=== PATIENT | female | born 1980 | race African-American/Black ===

== ENCOUNTER 2018-11-04 17:25 | Emergency (ER) | payer OTHER ==
[~2018-11-04] VITALS: Ht 142.2 cm; Wt 83.9 kg
[2018-11-04 17:25] VITALS: BP 126/88
[2018-11-04] MEDS ORDERED: IV NORMAL SALINE 1,000ML 1,000 ML IV SCH (17:45)
--- NOTE | 2018-11-04 18:04 | PHYS DOC ---
Past History Past Medical History: Diabetes (CELESTE MAHAN DO) Additional Past Surgical Histo: right ankle ORIF (CELESTE MAHAN DO) Smoking: Non-smoker Alcohol Use: None Drug Use: None (CELESTE MAHAN DO) Adult General Chief Complaint Chief Complaint: VAGINAL PROBLEM HPI HPI Patient is a 37-year-old female who presents with vaginal discharge since last night. She also notes some dysuria for the past several days. She is a diabetic patient and his noted an elevated blood sugar for the past several days as well along with frequency of urination. There has been no fever. No back or flank pain. Patient has tried no [id number] or home medicines for this. Patient denies being sexually active. She reports having an IUD in place.[] (CELESTE MAHAN DO) Review of Systems Review of Systems Constitutional: Denies fever or chills [] Eyes: Denies change in visual acuity, redness, or eye pain [] HENT: Denies nasal congestion or sore throat [] Respiratory: Denies cough or shortness of breath [] Cardiovascular: No chest pain or palpitations[] GI: Denies abdominal pain, nausea, vomiting, bloody stools or diarrhea [] : See history of present illness[] Musculoskeletal: Denies back pain or joint pain [] Integument: Denies rash or skin lesions [] Neurologic: Denies headache, focal weakness or sensory changes [] Endocrine: Denies polydipsia, see history of present illness [] All other systems were reviewed and found to be within normal limits, except as documented in this note. (CELESTE MAHAN DO) Physical Exam Physical Exam Constitutional: Well developed, well nourished, no acute distress, non-toxic appearance. [] HENT: Normocephalic, atraumatic, bilateral external ears normal, oropharynx moist, no oral exudates, nose normal. [] Eyes: PERRLA, EOMI, conjunctiva normal, no discharge. [] Neck: Normal range of motion, no tenderness, supple, no stridor. [] Cardiovascular:Heart rate is tachycardic in the low 100s with a regular rhythm, no murmur [] Lungs & Thorax: Bilateral breath sounds clear to auscultation [] Abdomen: Bowel sounds normal, soft, no tenderness, no masses, no pulsatile masses. exam performed with combination machine tender: External genitalia, [place]'s, [place]-normal , V/V-yellow tinged d/c, Cervix-parous os, no CMT [] Skin: Warm, dry, no erythema, no rash. [] Back: No tenderness, no CVA tenderness. [] Extremities: No tenderness, no cyanosis, no clubbing, ROM intact, no edema. [] Neurologic: Alert and oriented X 3, normal motor function, normal sensory function, no focal deficits noted. [] Psychologic: Affect normal, judgement normal, mood normal. [] (CELESTE MAHAN DO) EKG EKG [] (CELESTE MAHAN DO) Radiology/Procedures Radiology/Procedures [] (CELESTE MAHAN DO) Course & Med Decision Making Course & Med Decision Making Pertinent Labs and Imaging studies reviewed. (See chart for details) ED course: Patient arrived, was placed in bed, in tolerated exam well. IV fluids were started. Laboratory samples were obtained. Patient care endorsed to the oncoming physician at 1800 with the results of these tests pending.[] (CELESTE MAHAN DO) Dragon Disclaimer Dragon Disclaimer This electronic medical record was generated, in whole or in part, using a voice recognition dictation system. (CELESTE MAHAN DO) Departure Departure: Impression: Primary Impression: Dysuria Additional Impression: Vaginal discharge Disposition: HOME, SELF-CARE Condition: STABLE Referrals: PCP,NO (PCP) Patient Instructions: Dysuria, Vaginitis, Ebeu-nw-[id number] Scripts Nitrofurantoin Monohyd/M-Cryst (MACROBID 100 MG CAPSULE) 100 Mg Capsule 1 CAP PO BID for infection, #14 CAP Prov: KRISTAN LUI Jr. DO 11/04/18 Problem Qualifiers CELESTE MAHAN DO Nov 04, 2018 18:04 KRISTAN LUI Jr. DO Nov 04, 2018 20:54
[2018-11-04 18:24] LABS: BILIRUBIN,URINE NEG (NEG); CLARITY,URINE CLEAR; COLOR,URINE YELLOW; GLUCOSE,URINE >=1000 mg/dL (NEG); NITRITE,URINE NEG (NEG); RBC,URINE 0 /HPF (0-2); UROBILINOGEN,URINE 0.2 mg/dL (0.2 mg/dL)
[2018-11-04 18:25] LABS: BACTERIA,URINE 0 /HPF (0-FEW); SQUAMOUS EPITHELIAL CELL,UR MOD /LPF
--- NOTE | 2018-11-04 18:27 | NUR ---
[facility] NOTIFIED THAT PATIENT IS DELAYED IN THE ER.
[2018-11-04 19:10] LABS: BASO # 0.1 x10^3/uL (0.0-0.2); BASO % 1 % (0-3); EOS # 0.3 x10^3/uL (0.0-0.7); EOS % 3 % (0-3); HEMATOCRIT 40.4 % (36.0-47.0); HEMOGLOBIN 13.4 g/dL (12.0-15.5); LYMPH # 2.3 x10^3/uL (1.0-4.8); LYMPH % 21 % (24-48); MEAN CORPUSCULAR HEMOGLOBIN 28 pg (25-35); MEAN CORPUSCULAR HGB CONC 33 g/dL (31-37); MEAN CORPUSCULAR VOLUME 84 fL (79-100); MONO # 0.6 x10^3/uL (0.0-1.1); MONO % 6 % (0-9); NEUT # 7.4 x10^3uL (1.8-7.7); NEUT % 69 % (31-73); PLATELET COUNT 235 x10^3/uL (140-400); RED BLOOD COUNT 4.81 x10^6/uL (3.50-5.40); WHITE BLOOD COUNT 10.7 x10^3/uL (4.0-11.0)
[2018-11-04 19:23] LABS: ALBUMIN 3.3 g/dL (3.4-5.0); ALBUMIN/GLOBULIN RATIO 0.7 (1.0-1.7); CALCIUM 9.3 mg/dL (8.5-10.1); GFR 75.5; POTASSIUM 3.2 mmol/L (3.5-5.1); TOTAL BILIRUBIN 0.3 mg/dL (0.2-1.0); TOTAL PROTEIN 7.8 g/dL (6.4-8.2)
[2018-11-04] MEDS ORDERED: POTASSIUM CHLORIDE 20 MEQ TABLET.ER. PO ONE (20:00)
[2018-11-04] MEDS ORDERED: FLUCONAZOLE 100 MG TABLET. ONE (20:08)
[2018-11-04] MEDS ORDERED: FLUCONAZOLE 100 MG TABLET. PO ONE (20:15)
[2018-11-04] MEDS ORDERED: NITROFURANTOIN MONOHYD/M-CRYST 100 MG CAPSULE. PO ONE (20:15)
[2018-11-04 20:20] LABS: U PREG PATIENT NEGATIVE (NEG)
[2018-11-04] MEDS ORDERED: NITR100C62 PO (20:54)
--- NOTE | 2018-11-05 08:34 | RAD ---
AP view of the abdomen Clinical indications: Pelvic cramping. FINDINGS: Moderate fecal retention is seen within the right side of the colon. Mild fecal retention is seen within the left side of the colon. No obstructive bowel pattern is evident. IUD is apparent. Vascular calcification of the left side of the anatomic pelvis is seen. IMPRESSION: No obstructive bowel pattern. Fecal retention. Electronically signed by: Kennedy Mackenzie MD (11/05/2018 8:31 AM) [facility]
[2018-11-06 14:07] LABS: CHLAMYDIA PROBE Negative (Negative)
== END 2018-11-04 21:20 | disposition home or self-care (01) ==
LOC: ER 17:25
DX: N89.8 Other specified noninflammatory disorders of vagina (principal); R30.0 Dysuria; E11.65 Type 2 diabetes mellitus with hyperglycemia
CPT/HCPCS: 36415; 74018; 80053; 81001; 81025; 82947; 85025; 87086; 87491; 87591; 96360; 99284; Q0111; J7030

== ENCOUNTER 2018-12-01 14:09 | Emergency (ER) | payer MEDICAID ==
[~2018-12-01] VITALS: Ht 142.2 cm; Wt 82.0 kg
[~2018-12-01 14:09] MED LIST: NITR100C62 PO
[2018-12-01] MEDS ORDERED: IV NORMAL SALINE 1,000ML 1,000 ML IV SCH (14:23)
[2018-12-01 14:37] LABS: CLARITY,URINE CLEAR; COLOR,URINE STRAW
[2018-12-01 14:38] LABS: BACTERIA,URINE 0 /HPF (0-FEW); BILIRUBIN,URINE NEG (NEG); GLUCOSE,URINE 500 mg/dL (NEG); NITRITE,URINE NEG (NEG); RBC,URINE 0 /HPF (0-2); SQUAMOUS EPITHELIAL CELL,UR OCC /LPF; UROBILINOGEN,URINE 0.2 mg/dL (0.2 mg/dL); WBC,URINE 0 /HPF (0-4)
[2018-12-01 15:06] LABS: BASO # 0.1 x10^3/uL (0.0-0.2); BASO % 1 % (0-3); EOS # 0.2 x10^3/uL (0.0-0.7); EOS % 2 % (0-3); HEMATOCRIT 42.8 % (36.0-47.0); HEMOGLOBIN 14.5 g/dL (12.0-15.5); LYMPH # 2.3 x10^3/uL (1.0-4.8); LYMPH % 23 % (24-48); MEAN CORPUSCULAR HEMOGLOBIN 29 pg (25-35); MEAN CORPUSCULAR HGB CONC 34 g/dL (31-37); MEAN CORPUSCULAR VOLUME 84 fL (79-100); MONO # 0.5 x10^3/uL (0.0-1.1); MONO % 5 % (0-9); NEUT % 69 % (31-73); PLATELET COUNT 256 x10^3/uL (140-400); RED BLOOD COUNT 5.09 x10^6/uL (3.50-5.40); RED CELL DISTRIBUTION WIDTH 14.6 % (11.5-14.5)
[2018-12-01 15:16] LABS: ALBUMIN 3.8 g/dL (3.4-5.0); ALBUMIN/GLOBULIN RATIO 0.9 (1.0-1.7); CALCIUM 9.4 mg/dL (8.5-10.1); CREATININE 1.1 mg/dL (0.6-1.0); GFR 67.3; POTASSIUM 4.5 mmol/L (3.5-5.1); TOTAL PROTEIN 8.2 g/dL (6.4-8.2)
[2018-12-01] MEDS ORDERED: INSULIN REGULAR 100 UNIT/ML 3ML VIAL. IV ONE (16:00)
[2018-12-01] MEDS ORDERED: FLUCONAZOLE 100 MG TABLET. PO ONE (16:30)
[2018-12-01 16:38] VITALS: BP 133/79
[2018-12-01] MEDS ORDERED: INSU100C4 SQ (16:55)
[2018-12-01] MEDS ORDERED: INSU100V SQ (16:55)
--- NOTE | 2018-12-01 16:55 | PHYS DOC ---
Past History Past Medical History: Bronchitis, Diabetes, Hypertension Past Surgical History: No Surgical History Additional Past Surgical Histo: right ankle ORIF Smoking: Non-smoker Alcohol Use: None Drug Use: None Adult General Chief Complaint Chief Complaint: PAIN ON URINATION [facility] HPI Patient is a 38-year-old female who presents with complaint of elevated blood sugars at home as well as painful urination over the last few days. Patient denies any fever or back pain. Patient does indicate that she has been having polyuria as well as polydipsia. She states that she is a diabetic and has run out of her insulin. She denies any abdominal pain, chest pain, shortness of breath or fever. Review of Systems Review of Systems Constitutional: Denies fever or chills [] Respiratory: Denies cough or shortness of breath [] Cardiovascular: No additional information not addressed in HPI [] GI: Denies abdominal pain, nausea, vomiting or diarrhea [] : Positive dysuria without hematuria [] Neurologic: Denies headache, focal weakness or sensory changes [] Endocrine: Reports polyuria and polydipsia [] All other systems were reviewed and found to be within normal limits, except as documented in this note. Current Medications Current Medications Current Medications Medications (Trade) Dose Ordered Sig/Castillo Start Time Stop Time Status Last Admin Dose Admin Fluconazole (Diflucan) 150 mg 1X ONCE 12/01/18 16:30 12/01/18 16:31 DC 12/01/18 16:39 150 MG Insulin Human Regular (HumuLIN R VIAL) 10 unit 1X ONCE 12/01/18 16:00 12/01/18 16:01 DC 12/01/18 16:05 10 UNIT Sodium Chloride 1,000 ml @ 1,000 mls/hr Q1H 12/01/18 14:23 12/01/18 15:22 DC 12/01/18 14:47 1,000 MLS/HR Allergies Allergies Allergies Coded Allergies Type Severity Reaction Last Updated Verified No Known Drug Allergies 11/04/18 No Physical Exam Physical Exam Constitutional: Well developed, well nourished, no acute distress, non-toxic appearance. [] HENT: Normocephalic, atraumatic, bilateral external ears normal, oropharynx moist, no oral exudates, nose normal. [] Eyes: PERRLA, EOMI, conjunctiva normal, no discharge. [] Neck: Normal range of motion, no tenderness, supple, no stridor. [] Cardiovascular:Heart rate regular rhythm, no murmur [] Lungs & Thorax: Bilateral breath sounds clear to auscultation [] Abdomen: Bowel sounds normal, soft, no tenderness. [] Skin: Warm, dry, no erythema, no rash. [] Extremities: No tenderness, no cyanosis, no clubbing, ROM intact. [] Neurologic: Alert and oriented X 3, no focal deficits noted. [] Current Patient Data Vital Signs Vital Signs Date Time Temp Pulse Resp B/P (MAP) Pulse Ox O2 Delivery O2 Flow Rate FiO2 12/01/18 16:38 96 16 133/79 (97) 100 Room Air 12/01/18 14:26 97.5 Lab Results Laboratory Tests Test 12/01/18 14:16 12/01/18 14:33 12/01/18 14:47 12/01/18 15:58 Urine Collection Type Void Urine Color Straw Urine Clarity Clear Urine pH 6.0 Urine Specific Theodore 1.010 Urine Protein Neg (NEG-TRACE) Urine Glucose (UA) 500 mg/dL (NEG) Urine Ketones (Stick) 40 mg/dL (NEG) Urine Blood Neg (NEG) Urine Nitrite Neg (NEG) Urine Bilirubin Neg (NEG) Urine Urobilinogen Dipstick 0.2 mg/dL (0.2 mg/dL) Urine Leukocyte Esterase Neg (NEG) Urine RBC 0 /HPF (0-2) Urine WBC 0 /HPF (0-4) Urine Squamous Epithelial Cells Occ /LPF Urine Bacteria 0 /HPF (0-FEW) Urine Mucus Slight /LPF Glucose (Fingerstick) 403 mg/dL (70-99) H 385 mg/dL (70-99) H White Blood Count 10.0 x10^3/uL (4.0-11.0) Red Blood Count 5.09 x10^6/uL (3.50-5.40) Hemoglobin 14.5 g/dL (12.0-15.5) Hematocrit 42.8 % (36.0-47.0) Mean Corpuscular Volume 84 fL (79-100) Mean Corpuscular Hemoglobin 29 pg (25-35) Mean Corpuscular Hemoglobin Concent 34 g/dL (31-37) Red Cell Distribution Width 14.6 % (11.5-14.5) H Platelet Count 256 x10^3/uL (140-400) Neutrophils (%) (Auto) 69 % (31-73) Lymphocytes (%) (Auto) 23 % (24-48) L Monocytes (%) (Auto) 5 % (0-9) Eosinophils (%) (Auto) 2 % (0-3) Basophils (%) (Auto) 1 % (0-3) Neutrophils # (Auto) 7.0 x10^3uL (1.8-7.7) Lymphocytes # (Auto) 2.3 x10^3/uL (1.0-4.8) Monocytes # (Auto) 0.5 x10^3/uL (0.0-1.1) Eosinophils # (Auto) 0.2 x10^3/uL (0.0-0.7) Basophils # (Auto) 0.1 x10^3/uL (0.0-0.2) Sodium Level 130 mmol/L (136-145) L Potassium Level 4.5 mmol/L (3.5-5.1) Chloride Level 93 mmol/L (98-107) L Carbon Dioxide Level 21 mmol/L (21-32) Anion Gap 16 (6-14) H Blood Urea Nitrogen 18 mg/dL (7-20) Creatinine 1.1 mg/dL (0.6-1.0) H Estimated GFR (Cockcroft-Gault) 67.3 BUN/Creatinine Ratio 16 (6-20) Glucose Level 437 mg/dL (70-99) H Calcium Level 9.4 mg/dL (8.5-10.1) Total Bilirubin 1.0 mg/dL (0.2-1.0) Aspartate Amino Transferase (AST) 24 U/L (15-37) Alanine Aminotransferase (ALT) 22 U/L (14-59) Alkaline Phosphatase 98 U/L (46-116) Total Protein 8.2 g/dL (6.4-8.2) Albumin 3.8 g/dL (3.4-5.0) Albumin/Globulin Ratio 0.9 (1.0-1.7) L Test 12/01/18 16:44 Glucose (Fingerstick) 269 mg/dL (70-99) H EKG EKG [] Radiology/Procedures Radiology/Procedures [] Course & Med Decision Making Course & Med Decision Making Pertinent Labs and Imaging studies reviewed. (See chart for details) [] Dragon Disclaimer Dragon Disclaimer This electronic medical record was generated, in whole or in part, using a voice recognition dictation system. Departure Departure: Impression: Primary Impression: Diabetes mellitus with hyperglycemia Disposition: HOME, SELF-CARE Condition: STABLE Referrals: PCP,NO (PCP) Patient Instructions: Type 2 Diabetes Mellitus, Adult Scripts Fluconazole (DIFLUCAN) 150 Mg Tablet 1 TAB PO ONCE for yeast infection, #1 TAB 1 Refill Prov: KRISTAN LUI Jr. DO 12/01/18 Insulin Lispro (HUMALOG) 100 Unit/1 Ml Vial 1 UNIT SQ UD for hyperglycemia, #1 BOTTLE Prov: KRISTAN LUI Jr. DO 12/01/18 Insulin Aspart (NOVOLOG) 100 Unit/1 Ml Cartridge 1 UNIT SQ UD for hyperglycemia, #1 BOT Prov: KRISTAN LUI Jr. DO 12/01/18 Problem Qualifiers Primary Impression: Diabetes mellitus with hyperglycemia Diabetes mellitus type: type 2 Diabetes mellitus termite exterminator helper insulin use: unspecified termite exterminator helper insulin use status Qualified Codes: E11.65 - Type 2 diabetes mellitus with hyperglycemia KRISTAN LUI Jr. DO December 01, 2018 16:55
[2018-12-01] MEDS ORDERED: FLUC150T PO (16:56)
== END 2018-12-01 17:08 | disposition home or self-care (01) ==
LOC: ER 14:09
DX: E11.65 Type 2 diabetes mellitus with hyperglycemia (principal); R30.0 Dysuria; I10 Essential (primary) hypertension
CPT/HCPCS: 36415; 80053; 81001; 82947; 85025; 96361; 96374; 99284; J1815; J7030